=== PATIENT | male | born 1960 | race Caucasian/White ===

== ENCOUNTER 2016-10-14 11:50 | Inpatient (IN) | payer OTHER ==
[~2016-10-14] VITALS: Ht 182.9 cm; Wt 79.8 kg
[2016-10-14] MEDS ORDERED: ASPIR-LOW81 MG PO (17:59)
[2016-10-14] MEDS ORDERED: B-122500 MCG SL (18:00)
[2016-10-14] MEDS ORDERED: MULTIVITAMINS1 EAC1 PO (18:00)
[2016-10-14] MEDS ORDERED: TENORMIN 25 MG25 MG PO (18:01)
[2016-10-14] MEDS ORDERED: VITAMIN D32000 UNI1 PO (18:01)
[2016-10-14] MEDS ORDERED: OMEPRAZOLE40 MG PO (18:02)
[2016-10-14] MEDS ORDERED: FOLIC ACID 1 MG1 MG PO (18:02)
[2016-10-14] MEDS ORDERED: FLOMAX0.4 MG PO (18:03)
[2016-10-14] MEDS ORDERED: BUPROPION HCL150 M1 PO (18:03)
[2016-10-14] MEDS ORDERED: LIPITOR20 MG PO (18:04)
[2016-10-14] MEDS ORDERED: SEROQUEL200 MG PO (18:04)
[2016-10-14] MEDS ORDERED: PAXIL40 MG PO (18:05)
[2016-10-14] MEDS ORDERED: BUSPIRONE HCL15 MG PO (18:06)
[2016-10-14] MEDS ORDERED: NEURONTIN 400400 MG PO (18:07)
[2016-10-14] MEDS ORDERED: MAGNESIUM OXID400 MG PO (18:07)
[2016-10-14] MEDS ORDERED: GLUCOPHAGE500 MG PO (18:08)
[2016-10-14] MEDS ORDERED: HYDROCODON-ACE1 EAC6 PO (18:08)
[2016-10-14] MEDS ORDERED: TOUJEO SQ (18:09)
[2016-10-14] MEDS ORDERED: HUMALOG MI100 UNIT/1 SQ (18:10)
[2016-10-14] MEDS ORDERED: SEROQUEL50 MG PO (18:11)
[2016-10-14 18:53] LABS: HEMOGLOBIN 8.4 gm/dl (14.0-17.5); RED BLOOD COUNT 3.2 M/UL (4.20-5.50); WHITE BLOOD COUNT 13.2 K/UL (4.5-11.0)
[2016-10-15 06:11] LABS: HEMOGLOBIN 8.1 gm/dl (14.0-17.5); RED BLOOD COUNT 3.15 M/UL (4.20-5.50)
[2016-10-15 06:26] LABS: WHITE BLOOD COUNT 8.1 K/UL (4.5-11.0)
[2016-10-16 05:39] LABS: HEMOGLOBIN 8.9 gm/dl (14.0-17.5); RED BLOOD COUNT 3.37 M/UL (4.20-5.50); WHITE BLOOD COUNT 9.9 K/UL (4.5-11.0)
[2016-10-16 05:55] LABS: BUN/CREATININE RATIO 12 (0-10)
[2016-10-17 09:16] LABS: HEMOGLOBIN 8.5 gm/dl (14.0-17.5); RED BLOOD COUNT 3.28 M/UL (4.20-5.50); WHITE BLOOD COUNT 11.1 K/UL (4.5-11.0)
[2016-10-17 09:20] LABS: BUN/CREATININE RATIO 9 (0-10)
[2016-10-18 05:31] LABS: HEMOGLOBIN 8.2 gm/dl (14.0-17.5); RED BLOOD COUNT 3.2 M/UL (4.20-5.50); WHITE BLOOD COUNT 9.2 K/UL (4.5-11.0)
[2016-10-18 05:41] LABS: BUN/CREATININE RATIO 9 (0-10)
[2016-10-19 06:10] LABS: BUN/CREATININE RATIO 12 (0-10)
[2016-10-20] MEDS ORDERED: [UNRECOGNIZED DRUG - CODE] IV (15:42)
[2016-10-20] MEDS ORDERED: PERCOCET 10-321 EACH PO (17:57)
== END 2016-10-20 20:32 | disposition home health service (06) | DRG 464 ==
LOC: MED SURG 4 16:47
PROVIDERS: Podiatrist Foot & Ankle Surgery; ADMIT Internal Medicine Infectious Disease
PROC: 0QBQ0ZZ Excision of Right Toe Phalanx, Open Approach (ICD-10-PCS; principal; 2016-10-16 09:14)
PROC: 0J9Q0ZZ Drainage of Right Foot Subcutaneous Tissue and Fascia, Open Approach (ICD-10-PCS; principal; 2016-10-16 09:14)
PROC: 0QPN04Z Removal of Internal Fixation Device from Right Metatarsal, Open Approach (ICD-10-PCS; principal; 2016-10-16 09:14)
PROC: 0JBQ0ZZ Excision of Right Foot Subcutaneous Tissue and Fascia, Open Approach (ICD-10-PCS; principal; 2016-10-16 09:14)
PROC: 3E01329 Introduction of Other Anti-infective into Subcutaneous Tissue, Percutaneous Approach (ICD-10-PCS; principal; 2016-10-16 09:14)
DX: T84.69XA Infection and inflammatory reaction due to internal fixation device of other site, initial encounter (principal); L03.115 Cellulitis of right lower limb; M86.8X7 Other osteomyelitis, ankle and foot; M00.071 Staphylococcal arthritis, right ankle and foot; L02.611 Cutaneous abscess of right foot; M00.9 Pyogenic arthritis, unspecified; E87.1 Hypo-osmolality and hyponatremia; N17.9 Acute kidney failure, unspecified; E11.69 Type 2 diabetes mellitus with other specified complication; B95.62 Methicillin resistant Staphylococcus aureus infection as the cause of diseases classified elsewhere; G62.1 Alcoholic polyneuropathy; E11.22 Type 2 diabetes mellitus with diabetic chronic kidney disease; N18.3 Chronic kidney disease, stage 3 (moderate); E11.65 Type 2 diabetes mellitus with hyperglycemia; D63.8 Anemia in other chronic diseases classified elsewhere; E61.1 Iron deficiency; I25.10 Atherosclerotic heart disease of native coronary artery without angina pectoris; Z79.4 Long term (current) use of insulin; E78.5 Hyperlipidemia, unspecified; K21.9 Gastro-esophageal reflux disease without esophagitis; N40.0 Benign prostatic hyperplasia without lower urinary tract symptoms; Z87.891 Personal history of nicotine dependence; F10.21 Alcohol dependence, in remission; F41.9 Anxiety disorder, unspecified; F32.9 Major depressive disorder, single episode, unspecified; Z95.5 Presence of coronary angioplasty implant and graft; Z83.3 Family history of diabetes mellitus
CPT/HCPCS: 36415; 73630; 76000; 80048; 80053; 80202; 82607; 82728; 82746; 82962; 83036; 83540; 83550; 84443; 85025; 85027; 85610; 86140; 86850; 86900; 86901; 86920; 87070; 87077; 87186; 87205; 93005; C1713; J1200; J1580; J1756; J2250; J2270; J2405; J2795; J3010; J3370; J7030; J7050; J7070; J7120

== ENCOUNTER → 2016-12-03 | Outpatient (CLI) | payer OTHER ==
[~2016-12-03] MED LIST: ASPIR-LOW81 MG PO; B-122500 MCG SL; BUPROPION HCL150 M1 PO; BUSPIRONE HCL15 MG PO; FLOMAX0.4 MG PO; FOLIC ACID 1 MG1 MG PO; GLUCOPHAGE500 MG PO; HUMALOG MI100 UNIT/1 SQ; HYDROCODON-ACE1 EAC6 PO; LIPITOR20 MG PO; MAGNESIUM OXID400 MG PO; MULTIVITAMINS1 EAC1 PO; NEURONTIN 400400 MG PO; OMEPRAZOLE40 MG PO; PAXIL40 MG PO; PERCOCET 10-321 EACH PO; SEROQUEL200 MG PO; SEROQUEL50 MG PO; TENORMIN 25 MG25 MG PO; TOUJEO SQ; VITAMIN D32000 UNI1 PO; [UNRECOGNIZED DRUG - CODE] IV
== END ==
LOC: OPSV 10:22
DX: E11.621 Type 2 diabetes mellitus with foot ulcer (principal); M86.8X7 Other osteomyelitis, ankle and foot
CPT/HCPCS: G0463

== ENCOUNTER → 2016-12-29 | Outpatient (CLI) | payer OTHER | LOC: OPSV 12:51 | DX: M86.8X7 Other osteomyelitis, ankle and foot (principal) | CPT/HCPCS: G0463 ==